=== PATIENT | male | born 1995 | race Caucasian/White ===

== ENCOUNTER 2024-05-08 13:31 | Emergency (ER) | payer OTHER ==
[~2024-05-08] VITALS: Ht 185.4 cm; Wt 92.2 kg
[2024-05-08 15:51] LABS: BASO # 0.1 10^3/uL (0.0-0.2); BASO % 0.9 % (0.0-1.0); EOS # 0.4 10^3/uL (0.0-0.5); EOS % 5.5 % (0.0-3.0); HEMATOCRIT 41.1 % (42.0-52.0); HEMOGLOBIN 13.9 g/dl (13.5-17.5); LYMPH # 2.2 10^3/uL (1.5-5.0); LYMPH % 29.4 % (24.0-44.0); MEAN CORPUSCULAR HGB CONC 33.8 g/dl (32.0-36.5); MEAN CORPUSCULAR VOLUME 88.8 fl (80.0-96.0); MONO # 0.7 10^3/uL (0.0-0.8); MONO % 9.1 % (2.0-8.0); NEUTROPHILS # 4.1 10^3/uL (1.5-8.5); NEUTROPHILS % 54.8 % (36.0-66.0); PLATELET COUNT, AUTOMATED 254 10^3/uL (150-450); RED BLOOD COUNT 4.63 10^6/uL (4.30-6.10); WHITE BLOOD COUNT 7.5 10^3/uL (4.0-10.0)
[2024-05-08 16:19] LABS: BLOOD UREA NITROGEN 16 MG/DL (9-23); CALCIUM LEVEL 9.5 MG/DL (8.5-10.1); CARBON DIOXIDE LEVEL 31 MMOL/L (20-31); CHLORIDE LEVEL 104 MMOL/L (98-107); GLOMERULAR FILTRATION RATE > 60.0 (>60); GLUCOSE, FASTING 98 MG/DL (60-100); POTASSIUM SERUM 4.1 MMOL/L (3.5-5.1); SODIUM LEVEL 143 MMOL/L (136-145)
[2024-05-08] MEDS ORDERED: HYDR26CR TOP (17:04)
[2024-05-08] MEDS ORDERED: MIRA3350 PO (17:04)
[2024-05-08] MEDS: MAGNESIUM CITRATE 300ML BTL PO ONE (17:05)
[2024-05-08 17:14] VITALS: BP 139/60; TEMP 97.7; O2SAT 99
== END 2024-05-08 17:17 | disposition home or self-care (01) ==
LOC: M ED 13:31
DX: K59.00 Constipation, unspecified (principal); K64.4 Residual hemorrhoidal skin tags; M79.671 Pain in right foot; Z88.2 Allergy status to sulfonamides

== ENCOUNTER 2025-02-04 11:49 | Emergency (ER) | payer OTHER ==
[~2025-02-04] VITALS: Ht 185.4 cm; Wt 91.9 kg
[~2025-02-04 11:49] MED LIST: HYDR26CR TOP; MIRA3350 PO
[2025-02-04 14:03] VITALS: BP 108/67; TEMP 97.6; O2SAT 99
== END 2025-02-04 14:05 | disposition home or self-care (01) ==
LOC: M ED 11:49
DX: S06.0XAA Concussion with loss of consciousness status unknown, initial encounter (principal); W22.8XXA Striking against or struck by other objects, initial encounter; Y92.9 Unspecified place or not applicable; Y93.9 Activity, unspecified; Y99.1 Military activity; F17.290 Nicotine dependence, other tobacco product, uncomplicated; Z88.2 Allergy status to sulfonamides